=== PATIENT | male | born 1975 | race African-American/Black ===

== ENCOUNTER → 2016-06-13 | Outpatient (CLI) | payer MEDICARE, OTHER ==
[~2016-06-13] MED LIST: ALBU0.08 NEB; AZIT250T3 PO; COMPTAB16 PO; DOLU1TAB PO; Ensure; HOSPITAL BED SEMI; HYDR-3516 PO; HYDR25 PO; Hospital Bed; IPRA0.02 INH; IPRA0.02 NEB; PRED5PAK PO; TRAZ100 PO; TUSSSUS2 PO; ULTR50TA PO; WHEEMIS3; ZYRT10TA3 PO; [UNRECOGNIZED DRUG - OTHER]; [UNRECOGNIZED DRUG - SUPPLY]; [UNRECOGNIZED DRUG - SUPPLY]; [UNRECOGNIZED DRUG - SUPPLY]
[2016-06-16 17:54] LABS: CD4/CD8 RATIO 0.3 (0.86-5.00)
== END ==
LOC: CLAB 14:22
PROVIDERS: ATTEND Family Medicine
DX: B20 Human immunodeficiency virus [HIV] disease (principal)
CPT/HCPCS: 36415; 86355; 86357; 86359; 86360

== ENCOUNTER → 2016-07-17 | Outpatient (CLI) | payer MEDICARE, OTHER ==
[~2016-07-17] MED LIST changes: +AZIT500T2 PO; +VENTAER INH
[2016-07-17 12:39] LABS: AUTOMATED NEUTROPHIL # 4.1 TH/MM3 (1.8-7.7); BASOPHIL # 0.1 TH/MM3 (0-0.2); BASOPHIL % 1.2 % (0.0-2.0); EOSINOPHIL # 0.1 TH/MM3 (0-0.4); EOSINOPHIL % 1.2 % (0.0-4.0); HEMATOCRIT 44.7 % (39.0-51.0); HEMO FLAGS DIFF FINAL; LYMPHOCYTE # 2.4 TH/MM3 (1.0-4.8); MEAN CELL VOLUME 93.4 FL (80.0-100.0); MEAN CORPUSCULAR HGB CONC 33.2 % (32.0-36.0); MONO % 6.9 % (0.0-8.0); NEUT % 57.7 % (16.0-70.0); PLATELET COUNT 166 TH/MM3 (150-450); RED BLOOD COUNT 4.79 MIL/MM3 (4.50-5.90); RED CELL DISTRIBUTION WIDTH 13.9 % (11.6-17.2); WHITE BLOOD COUNT 7.2 TH/MM3 (4.0-11.0)
[2016-07-17 13:00] LABS: ALKALINE PHOSPHATASE 110 U/L (45-117); ALT (GPT) 27 U/L (12-78); ANION GAP 7 MEQ/L (5-15); AST (GOT) 17 U/L (15-37); BICARBONATE 28.2 MEQ/L (21.0-32.0); BLOOD UREA NITROGEN 12 MG/DL (7-18); CHLORIDE 105 MEQ/L (98-107); GLOMERULAR FILTRATION RATE 116 ML/MIN (>89); GLUCOSE,FASTING 74 MG/DL (74-99); LDL CHOLESTEROL 61 MG/DL (0-99); POTASSIUM 3.7 MEQ/L (3.5-5.1); SODIUM (NA) 140 MEQ/L (136-145); TOTAL BILIRUBIN ADULT 0.3 MG/DL (0.2-1.0)
[2016-07-17 14:22] LABS: HEPATITIS B SURFACE ANTIBODY 0 mIU/mL
[2016-07-18 09:35] LABS: RAPID PLASMA REAGIN SCREEN NON-REACTIVE (NON-REACTVE)
[2016-07-18 23:54] LABS: CD4/CD8 RATIO 0.4 (0.86-5.00)
[2016-07-19 14:09] LABS: MITOGEN MINUS NIL RESULT >10.00 IU/mL (()); NIL RESULT 0.03 IU/mL (()); QUANTIFERON TB GOLD RESULT Negative (Negative)
[2016-07-19 17:57] LABS: HIV RNA COPIES LESS THAN 20.0 (()); HIV RNA LOG COPIES LESS THAN 1.30 (())
[2016-07-19 23:54] LABS: HSV2 IGM IFA NEGATIVE (())
[2016-07-20 12:23] LABS: HSV IGM 1 TITER ND TITER; HSV IGM II TITER ND TITER
== END ==
LOC: CLAB 11:28
PROVIDERS: ATTEND Internal Medicine Infectious Disease
DX: M87.852 Other osteonecrosis, left femur (principal); M62.81 Muscle weakness (generalized); B20 Human immunodeficiency virus [HIV] disease; M25.552 Pain in left hip; F17.200 Nicotine dependence, unspecified, uncomplicated; Z91.19 Patient's noncompliance with other medical treatment and regimen; Z96.641 Presence of right artificial hip joint; Z79.2 Long term (current) use of antibiotics; Z87.820 Personal history of traumatic brain injury
CPT/HCPCS: 36415; 80053; 80061; 80074; 85025; 86317; 86355; 86357; 86359; 86360; 86480; 86592; 86695; 86696; 86777; 86778; 87536

== ENCOUNTER → 2016-11-02 | Outpatient (CLI) | payer MEDICARE, OTHER ==
[~2016-11-02] MED LIST changes: -AZIT250T3 PO; -PRED5PAK PO; -TUSSSUS2 PO; -ULTR50TA PO; -[UNRECOGNIZED DRUG - OTHER]; -[UNRECOGNIZED DRUG - SUPPLY]
== END ==
LOC: CLAB 09:48
PROVIDERS: ATTEND Internal Medicine Infectious Disease
DX: M87.852 Other osteonecrosis, left femur (principal); J15.9 Unspecified bacterial pneumonia; M25.552 Pain in left hip; B20 Human immunodeficiency virus [HIV] disease; F17.290 Nicotine dependence, other tobacco product, uncomplicated; M62.81 Muscle weakness (generalized); Z87.820 Personal history of traumatic brain injury; Z91.14 Patient's other noncompliance with medication regimen
CPT/HCPCS: 87205

== ENCOUNTER → 2016-11-29 | Outpatient (CLI) | payer MEDICARE, OTHER ==
[~2016-11-29] MED LIST changes: -ALBU0.08 NEB; -IPRA0.02 NEB
[2016-11-29 10:59] LABS: AUTOMATED NEUTROPHIL # 2.5 TH/MM3 (1.8-7.7); BASOPHIL # 0.1 TH/MM3 (0-0.2); BASOPHIL % 1.3 % (0.0-2.0); EOSINOPHIL # 0.3 TH/MM3 (0-0.4); EOSINOPHIL % 5.3 % (0.0-4.0); HEMATOCRIT 46.6 % (39.0-51.0); HEMO FLAGS DIFF FINAL; LYMPH % 28.3 % (9.0-44.0); LYMPHOCYTE # 1.3 TH/MM3 (1.0-4.8); MEAN CELL VOLUME 93.3 FL (80.0-100.0); MEAN CORPUSCULAR HEMOGLOBIN 30.9 PG (27.0-34.0); MEAN CORPUSCULAR HGB CONC 33.1 % (32.0-36.0); MONO % 12.3 % (0.0-8.0); NEUT % 52.8 % (16.0-70.0); PLATELET COUNT 152 TH/MM3 (150-450); RED CELL DISTRIBUTION WIDTH 13.8 % (11.6-17.2); WHITE BLOOD COUNT 4.8 TH/MM3 (4.0-11.0)
[2016-11-29 11:16] LABS: ANION GAP 4 MEQ/L (5-15); AST (GOT) 16 U/L (15-37); BICARBONATE 30.1 MEQ/L (21.0-32.0); BLOOD UREA NITROGEN 10 MG/DL (7-18); CHLORIDE 106 MEQ/L (98-107); GLOMERULAR FILTRATION RATE 107 ML/MIN (>89); GLUCOSE,FASTING 77 MG/DL (74-99); POTASSIUM 3.8 MEQ/L (3.5-5.1); SODIUM (NA) 140 MEQ/L (136-145)
[2016-11-29 11:20] LABS: ALKALINE PHOSPHATASE 119 U/L (45-117); ALT (GPT) 26 U/L (12-78); TOTAL BILIRUBIN ADULT 0.5 MG/DL (0.2-1.0)
[2016-11-30 23:53] LABS: CD4/CD8 RATIO 0.4 (0.86-5.00)
[2016-12-01 11:52] LABS: HIV RNA COPIES LESS THAN 20.0 (()); HIV RNA LOG COPIES LESS THAN 1.30 (())
== END ==
LOC: CLAB 09:37
PROVIDERS: ATTEND Internal Medicine Infectious Disease
DX: M87.852 Other osteonecrosis, left femur (principal); B20 Human immunodeficiency virus [HIV] disease; J15.9 Unspecified bacterial pneumonia; M25.552 Pain in left hip; F17.290 Nicotine dependence, other tobacco product, uncomplicated; Z87.820 Personal history of traumatic brain injury; Z91.14 Patient's other noncompliance with medication regimen
CPT/HCPCS: 36415; 80053; 85025; 86355; 86357; 86359; 86360; 87536

== ENCOUNTER → 2017-03-28 | Outpatient (CLI) | payer MEDICARE, OTHER ==
[~2017-03-28] MED LIST changes: -AZIT500T2 PO
[2017-03-28 11:49] LABS: AUTOMATED NEUTROPHIL # 2.2 TH/MM3 (1.8-7.7); BASOPHIL # 0.1 TH/MM3 (0-0.2); BASOPHIL % 1.2 % (0.0-2.0); EOSINOPHIL # 0.2 TH/MM3 (0-0.4); EOSINOPHIL % 3.5 % (0.0-4.0); HEMATOCRIT 45.9 % (39.0-51.0); HEMOGLOBIN 15.3 GM/DL (13.0-17.0); LYMPH % 37.9 % (9.0-44.0); LYMPHOCYTE # 1.8 TH/MM3 (1.0-4.8); MEAN CELL VOLUME 93.4 FL (80.0-100.0); MEAN CORPUSCULAR HEMOGLOBIN 31.2 PG (27.0-34.0); MEAN CORPUSCULAR HGB CONC 33.4 % (32.0-36.0); MEAN PLATELET VOLUME 8.4 FL (7.0-11.0); MONOCYTE # 0.5 TH/MM3 (0-0.9); NEUT % 47.4 % (16.0-70.0); PLATELET COUNT 194 TH/MM3 (150-450); RED BLOOD COUNT 4.91 MIL/MM3 (4.50-5.90); RED CELL DISTRIBUTION WIDTH 13.8 % (11.6-17.2); WHITE BLOOD COUNT 4.7 TH/MM3 (4.0-11.0)
[2017-03-28 12:21] LABS: ALBUMIN 3.8 GM/DL (3.4-5.0); ALT (GPT) 29 U/L (12-78); AST (GOT) 19 U/L (15-37); BICARBONATE 29.9 MEQ/L (21.0-32.0); BLOOD UREA NITROGEN 11 MG/DL (7-18); CALCIUM 9.3 MG/DL (8.5-10.1); CHLORIDE 101 MEQ/L (98-107); CHOLESTEROL 132 MG/DL (120-200); CREATININE 0.97 MG/DL (0.60-1.30); GLOMERULAR FILTRATION RATE 103 ML/MIN (>89); GLUCOSE,FASTING 69 MG/DL (74-99); SODIUM (NA) 138 MEQ/L (136-145)
[2017-03-28 12:24] LABS: ALKALINE PHOSPHATASE 174 U/L (45-117); CHOLESTEROL/ HDL RATIO 3.27 RATIO; HDL CHOLESTEROL 40.3 MG/DL (40.0-60.0); LDL CHOLESTEROL 76 MG/DL (0-99); TOTAL BILIRUBIN ADULT 0.4 MG/DL (0.2-1.0); TOTAL PROTEIN 7.8 GM/DL (6.4-8.2); TRIGLYCERIDES 78 MG/DL (42-150)
== END ==
LOC: CLAB 11:02
PROVIDERS: ATTEND Internal Medicine Infectious Disease
DX: B20 Human immunodeficiency virus [HIV] disease (principal); Z79.2 Long term (current) use of antibiotics
CPT/HCPCS: 36415; 80053; 80061; 85025; 86355; 86357; 86359; 86360; 87536

== ENCOUNTER → 2017-10-23 | Outpatient (CLI) | payer MEDICARE, OTHER ==
[2017-10-23 11:28] LABS: AUTOMATED NEUTROPHIL # 1.7 TH/MM3 (1.8-7.7); BASOPHIL % 1.2 % (0.0-2.0); EOSINOPHIL # 0.1 TH/MM3 (0-0.4); EOSINOPHIL % 3.8 % (0.0-4.0); HEMOGLOBIN 15.4 GM/DL (13.0-17.0); LYMPH % 40.7 % (9.0-44.0); LYMPHOCYTE # 1.5 TH/MM3 (1.0-4.8); MEAN CELL VOLUME 94.3 FL (80.0-100.0); MEAN CORPUSCULAR HEMOGLOBIN 31.5 PG (27.0-34.0); MEAN CORPUSCULAR HGB CONC 33.4 % (32.0-36.0); MEAN PLATELET VOLUME 9.3 FL (7.0-11.0); MONO % 9.1 % (0.0-8.0); MONOCYTE # 0.3 TH/MM3 (0-0.9); NEUT % 45.2 % (16.0-70.0); PLATELET COUNT 164 TH/MM3 (150-450); RED BLOOD COUNT 4.88 MIL/MM3 (4.50-5.90); RED CELL DISTRIBUTION WIDTH 13.9 % (11.6-17.2); WHITE BLOOD COUNT 3.8 TH/MM3 (4.0-11.0)
[2017-10-23 11:53] LABS: AST (GOT) 17 U/L (15-37); BICARBONATE 26.2 MEQ/L (21.0-32.0); BLOOD UREA NITROGEN 11 MG/DL (7-18); CALCIUM 9.1 MG/DL (8.5-10.1); CHLORIDE 111 MEQ/L (98-107); CHOLESTEROL 114 MG/DL (120-200); CREATININE 1.02 MG/DL (0.60-1.30); GLOMERULAR FILTRATION RATE 97 ML/MIN (>89); GLUCOSE,FASTING 72 MG/DL (74-99); SODIUM (NA) 145 MEQ/L (136-145); TRIGLYCERIDES 81 MG/DL (42-150)
[2017-10-23 11:57] LABS: ALKALINE PHOSPHATASE 137 U/L (45-117); ALT (GPT) 29 U/L (12-78); CHOLESTEROL/ HDL RATIO 3.35 RATIO; LDL CHOLESTEROL 64 MG/DL (0-99); TOTAL BILIRUBIN ADULT 0.2 MG/DL (0.2-1.0); TOTAL PROTEIN 7.6 GM/DL (6.4-8.2)
== END ==
LOC: CLAB 10:55
PROVIDERS: ATTEND Internal Medicine Infectious Disease
DX: B20 Human immunodeficiency virus [HIV] disease (principal); Z79.2 Long term (current) use of antibiotics
CPT/HCPCS: 36415; 80053; 80061; 85025; 86355; 86357; 86359; 86360; 87536